=== PATIENT | female | born 1955 | race Caucasian/White ===

== ENCOUNTER 2021-10-19 20:14 | Emergency (ER) | payer SELFPAY ==
[~2021-10-19] VITALS: Ht 152.4 cm; Wt 63.5 kg
[2021-10-19] MEDS ORDERED: LASIX20 MG PO (20:24)
[2021-10-19] MEDS ORDERED: [UNRECOGNIZED DRUG - OTHER] PO (20:25)
[2021-10-19] MEDS ORDERED: PREMPRO 0.45-11 EACH PO (20:25)
== END 2021-10-19 23:48 | disposition left against medical advice (07) ==
LOC: ED 20:14
DX: S09.90XA Unspecified injury of head, initial encounter (principal); Z79.899 Other long term (current) drug therapy; W22.8XXA Striking against or struck by other objects, initial encounter; Y93.89 Activity, other specified; Y92.89 Other specified places as the place of occurrence of the external cause; Y99.8 Other external cause status